=== PATIENT | male | born 1930 | race Caucasian/White ===

== ENCOUNTER → 2018-02-27 13:14 | Outpatient (CLI) | payer MEDICARE, OTHER ==
[2011-08-26 15:58] VITALS: BMI 23.8
== END | disposition home or self-care (01) ==
LOC: D.CT 13:14
DX: M54.2 Cervicalgia (principal)

== ENCOUNTER → 2018-04-26 09:15 | Outpatient (CLI) | payer MEDICARE, OTHER ==
[2011-08-26 15:58] VITALS: BMI 23.8
== END | disposition home or self-care (01) ==
LOC: D.CT 09:15
DX: R51 Headache (principal)

== ENCOUNTER → 2018-07-11 08:09 | Outpatient (CLI) | payer MEDICARE, OTHER ==
[2011-08-26 15:58] VITALS: BMI 23.8
== END | disposition home or self-care (01) ==
LOC: D.CT 08:09
DX: R59.0 Localized enlarged lymph nodes (principal)

== ENCOUNTER → 2018-11-01 09:53 | Outpatient (CLI) | payer MEDICARE, OTHER ==
[2011-08-26 15:58] VITALS: BMI 23.8
== END | disposition home or self-care (01) ==
LOC: D.HCCARDIO 09:53
PROVIDERS: ATTEND Internal Medicine Cardiovascular Disease
DX: I34.0 Nonrheumatic mitral (valve) insufficiency (principal)

== ENCOUNTER → 2019-09-12 16:13 | Outpatient (CLI) | payer MEDICARE, OTHER ==
[2011-08-26 15:58] VITALS: BMI 23.8
[2019-09-12 16:27] LABS: BASOPHILS 0.9 % (0-2); EOSINOPHILS 5.1 % (0-7); HEMATOCRIT 37.9 % (42.0-54.0); HEMOGLOBIN 12.7 g/dL (13.5-17.5); LYMPHOCYTES 14.7 % (15-50); MCH 32.2 pg (26.0-34.0); MCHC 33.5 g/dL (31.0-37.0); MCV 95.9 fL (80.0-100.0); MONOCYTES 6.8 % (2-11); NEUTROPHILS 72.5 % (40-80); RBC 3.95 10x6/uL (4.20-6.10); RDW 13.9 % (11.5-14.5); WBC 5.5 10x3/uL (4.8-10.8)
[2019-09-12 16:36] LABS: PLATELET COUNT 127 10x3/uL (130-400)
[2019-09-12 16:40] LABS: ALBUMIN 3.3 g/dL (3.4-5.0); ALKALINE PHOSPHATASE 47 U/L (30-120); ALT (SGPT) 18 U/L (10-68); BILIRUBIN - TOTAL 0.76 mg/dL (0.2-1.3); CALC OSMOLALITY 284 mosm/kg (275-300); CALCIUM 8.3 mg/dL (8.5-10.1); CARBON DIOXIDE 27.4 mmol/L (21.0-32.0); CHLORIDE - SERUM 106 mmol/L (98-107); CREATININE - SERUM 0.9 mg/dL (0.6-1.3); GLUCOSE 97 mg/dL (74-106); POTASSIUM - SERUM 3.7 mmol/L (3.5-5.1); PROTEIN - SERUM 6.2 g/dL (6.4-8.2); SODIUM 143 mmol/L (136-145); UREA NITROGEN 12 mg/dL (7-18); eGFR NON AFRICAN AMERICAN 85 mL/min (90-120)
== END | disposition home or self-care (01) ==
LOC: D.LABREF 16:13
PROVIDERS: ATTEND Internal Medicine Gastroenterology
DX: K57.30 Diverticulosis of large intestine without perforation or abscess without bleeding (principal); K92.2 Gastrointestinal hemorrhage, unspecified; R19.5 Other fecal abnormalities; K62.89 Other specified diseases of anus and rectum

== ENCOUNTER → 2019-11-24 09:28 | Outpatient (CLI) | payer MEDICARE, OTHER ==
[2011-08-26 15:58] VITALS: BMI 23.8
== END | disposition home or self-care (01) ==
LOC: D.HCCECHO 09:28
PROVIDERS: ATTEND Internal Medicine Cardiovascular Disease
DX: I34.0 Nonrheumatic mitral (valve) insufficiency (principal)